=== PATIENT | female | born 1995 | race Caucasian/White ===

== ENCOUNTER 2018-12-10 11:00 | Emergency (ER) | payer BC ==
[~2018-12-10] VITALS: Ht 167.6 cm; Wt 54.4 kg
[2018-12-10 11:18] VITALS: BP 117/73
--- NOTE | 2018-12-10 11:21 | NUR ---
ED Nurse Note: having blood in stool today did have potential exposure to glass in food sat. states does have hx of hemorrhoids. denies abd pain. ermd on bedside talking with the pt regarding the plan of care.
--- NOTE | 2018-12-10 11:24 | Emergency Room Report ---
History of Present Illness General Chief Complaint: General Complaint Source: Patient Present Illness HPI Patient is a 23-year-old female presented after increased abdominal discomfort and blood in her stools. Patient reports having recent visit to her primary care physician and states that she had some discolored stool with some small amounts of blood. She denies any weakness or dizziness. She reports having some blood when she wipes. She denies any fever. She stated this happened if she ingested some sweet potatoes which may or may not of had some broken glass. She denies any foreign body sensation while she was eating. Allergies: Coded Allergies: SULFA (SULFONAMIDE ANTIBIOTICS) (Verified Allergy, Unknown, 12/10/18) Patient History Past Medical History: see triage record Last Menstrual Period: 3 weeks Now: No Reviewed Nursing Documentation: PMH: Agreed; PSxH: Agreed Nursing Documentation-PMH Past Medical History: No Stated History Review of Systems All Other Systems: negative except mentioned in HPI Physical Exam Vital Signs Date Time Temp Pulse Resp B/P (MAP) Pulse Ox O2 Delivery O2 Flow Rate FiO2 12/10/18 11:03 98.4 76 18 117/73 99 Room Air Sp02 EP Interpretation: reviewed, normal General Appearance: normal inspection, well appearing, no apparent distress, alert, GCS 15 Head: atraumatic ENT: normal ENT inspection, hearing grossly normal, normal voice Neck: normal inspection, full range of motion, supple, no bony tend Respiratory: normal inspection, lungs clear, normal breath sounds, no respiratory distress, no retraction, no wheezing Cardiovascular #1: regular rate, rhythm, no edema Gastrointestinal: normal inspection, normal bowel sounds, non tender, soft, no guarding, no hernia Genitourinary: no CVA tenderness Musculoskeletal: normal inspection, back normal, normal range of motion Neurologic: normal inspection, alert, oriented x3, responsive, material planning analyst III-XII nml as tested, speech normal Psychiatric: normal inspection, judgement/insight normal, mood/affect normal Skin: normal inspection, normal color, no rash Medical Decision Making Diagnostic Impression: Primary Impression: Rectal bleeding ER Course Patient presented for rectal bleeding. Differential diagnosis include was not limited to inflammatory bowel disease diverticulitis, colitis among others. Patient has a benign exam and does not appear to require any laboratory testing at this time. KUB read by radiology showed no evidence of radiopaque foreign body.Urine test was negative. Patient was noted to have benign abdomen. Patient was advised to follow-up with her primary care physician for referral for GI symptoms persisted.She was advised to return if she began having increased bleeding worsening pain or other concerns. Last Vital Signs Date Time Temp Pulse Resp B/P (MAP) Pulse Ox O2 Delivery O2 Flow Rate FiO2 12/10/18 11:18 76 18 Room Air 12/10/18 11:18 98.4 117/73 99 Status: improved Condition: Stable Scripts Docusate Sodium* (COLACE*) 100 Mg Capsule 100 MG ORAL THREE TIMES A DAY, #20 CAP Prov: Jose Almanza MD 12/10/18 Jose Almanza MD Dec 10, 2018 11:24
[2018-12-10] MEDS ORDERED: COLACE100 MG ORAL (12:33)
[2018-12-10 12:48] VITALS: BP 117/73
--- NOTE | 2018-12-10 12:48 | NUR ---
ER DISCHARGE NOTE: Patient is cleared to be discharged per ERMD, pt is aox4, on room air, with stable vital signs. pt was given dc and prescription instructions, pt was able to verbalize understanding, pt id band removed without complications. pt is able to ambulate with steady gait. pt took all belongings.ED
== END 2018-12-10 12:48 | disposition home or self-care (01) ==
LOC: EMR 11:38
DX: K62.5 Hemorrhage of anus and rectum (principal); R10.9 Unspecified abdominal pain; Z88.2 Allergy status to sulfonamides
CPT/HCPCS: 74018; 81025; 99283